=== PATIENT | female | born 1995 | race Caucasian/White ===

== ENCOUNTER 2017-05-17 08:25 | Emergency (ER) | payer OTHER ==
[2017-05-17 08:30] VITALS: RESP 16
[2017-05-17 08:54] LABS: PLATELET COUNT 254 10^3/uL (150-400)
--- NOTE | 2017-05-17 09:12 | EDPHY ---
H & P Stated Complaint: Woke up with severe lower abdo pain, more to the left. Time Seen by Provider: 05/17/17 08:47 HPI/ROS: CHIEF COMPLAINT: Abdominal pain HISTORY OF PRESENT ILLNESS: The patient is a 22 y/o female arriving with her mother complaining of left lower abdominal pain. Last night she developed sudden onset LLQ pain that she initially attributed to possible menstrual cramping. This morning the pain was much worse and spread across her abdomen, though still worst in the LLQ. She describes waxing and waning pain with moments of sharpness. She had associated nausea this morning. She had a similar episode of lower abdominal pain located in the right lower quadrant 1 month ago. She went to urgent care for that evaluation and had a normal STD panel at that time with no diagnosis for her pain. Pain completely resolved resolve over the next 1-2 weeks. She notes she has normally painful menstrual periods, but they are usually regular; her period last month was 2 weeks late. No vaginal discharge, urinary symptoms, vomiting, fever. REVIEW OF SYSTEMS: Constitutional: No fever, no chills Eyes: No visual changes ENT: No sore throat Respiratory: No cough, no shortness of breath Cardiac: No chest pain Gastrointestinal: see HPI Genitourinary: no dysuria Musculoskeletal: No leg pain or swelling Skin: No rash Neurological: No headache, no weakness Psychiatric: No depression - Personal History LMP (Females 10-55): Over 28 Days Ago Current Tetanus Diphtheria and Acellular Pertussis (TDAP): Yes - Medical/Surgical History PMH: Denies Hx Asthma: No Hx Chronic Respiratory Disease: No Hx Diabetes: No Hx Cardiac Disease: No Hx Renal Disease: No Hx Cirrhosis: No Hx Alcoholism: No Hx HIV/AIDS: No Hx Splenectomy or Spleen Trauma: No Other PMH: Denies. - Social History Smoking Status: Never smoked Additional Social History: Nonsmoker. Lives in [place]. Mother at bedside. Employed. - Physical Exam Exam: General Appearance: Alert, no distress Eyes: Pupils equal and round, no conjunctival pallor or injection ENT, Mouth: Mucous membranes moist Neck: Normal inspection Respiratory: Lungs are clear to auscultation Cardiovascular: Regular rate and rhythm Gastrointestinal: Abdomen is soft, left pelvic tenderness Neurological: A&O, nonfocal, normal gait Skin: Warm and dry, no rash Extremities: Nontender, no pedal edema Psychiatric: Mood and affect normal Constitutional: Initial Vital Signs Temperature (C) 36.7 C 05/17/17 08:25 Heart Rate 78 05/17/17 08:25 Respiratory Rate 16 05/17/17 08:25 Blood Pressure 97/56 L 05/17/17 08:25 O2 Sat (%) 97 05/17/17 08:25 O2 Delivery Mode Room Air Allergies/Adverse Reactions: acetaminophen [From Tylenol] Allergy (Verified 05/17/17 08:30) Home Medications: Medication Instructions Recorded NK [No Known Home Meds] 05/17/17 Medical Decision Making - Diagnostics Imaging Results: Imaging Impressions Pelvic/Renal Ultrasound 05/17/17 08:46 Impression: 1. Complex left ovarian cystic lesion measuring 5 x 4.1 x 3.1 cm with multiple septations and internal echoes. Differential diagnosis of complex cystic neoplasm, multiple hemorrhagic cysts, multiple endometriomas. 2. No ovarian torsion. 3. Minimal free fluid. 4. Normal right ovary. Recommend gynecologic consult. Findings and recommendations discussed with Emergency Department physician, Dr. Zohreh Priest at 0958 hours on May 17, 2017. Final report concurs with initial preliminary interpretation. Imaging: Discussed imaging studies w/ yardage caller Radiologist ED Course/Re-evaluation: This is a healthy nontoxic-appearing 22 y/o female who presents with about 12 hours of LLQ abdominal pain that worsened this morning. She had similar pain on the right side one month ago and had a negative work up at urgent care. She has left pelvic tenderness on exam. She is afebrile. Plan for IV, labs, UA, and pelvic US to assess for ovarian etiology. US shows a complex left ovarian cyst that will require OBGYN follow up. Labs are completely normal. Reassessed patient and discussed results. She understands she needs to follow up with her OBGYN this week. NSAIDs, heating pad for pain. Return precautions discussed. She is comfortable with discharge plan. Differential Diagnosis: Differential diagnosis includes though it is not limited to ectopic , ovarian cyst, ovarian torsion, PID, UTI, appendicitis. - Data Points Laboratory Results: Laboratory Results 05/17/17 08:44 05/17/17 05/17/17 05/17/17 08:44 08:44 08:44 WBC 6.69 10^3/uL 10^3/uL (3.80-9.50) RBC 4.22 10^6/uL 10^6/uL (4.18-5.33) Hgb 13.6 g/dL g/dL (12.6-16.3) Hct 39.4 % % (38.0-47.0) MCV 93.4 fL fL (81.5-99.8) MCH 32.2 pg pg (27.9-34.1) MCHC 34.5 g/dL g/dL (32.4-36.7) RDW 11.8 % % (11.5-15.2) Plt Count 254 10^3/uL 10^3/uL (150-400) MPV 9.8 fL fL (8.7-11.7) Neut % (Auto) 63.4 % % (39.3-74.2) Lymph % (Auto) 24.5 % % (15.0-45.0) [place] % (Auto) 9.6 % % (4.5-13.0) Eos % (Auto) 1.6 % % (0.6-7.6) Baso % (Auto) 0.6 % % (0.3-1.7) Nucleat RBC Rel Count 0.0 % % (0.0-0.2) Absolute Neuts (auto) 4.24 10^3/uL 10^3/uL (1.70-6.50) Absolute Lymphs (auto) 1.64 10^3/uL 10^3/uL (1.00-3.00) Absolute Monos (auto) 0.64 10^3/uL 10^3/uL (0.30-0.80) Absolute Eos (auto) 0.11 10^3/uL 10^3/uL (0.03-0.40) Absolute Basos (auto) 0.04 10^3/uL 10^3/uL (0.02-0.10) Absolute Nucleated RBC 0.00 10^3/uL 10^3/uL (0-0.01) Immature Gran % 0.3 % % (0.0-1.1) Immature Gran # 0.02 10^3/uL 10^3/uL (0.00-0.10) Beta HCG, Qual NEGATIVE Urine Color YELLOW Urine Appearance HAZY Urine pH 5.0 (5.0-7.5) Ur Specific [place] 1.018 (1.002-1.030) Urine Protein NEGATIVE (NEGATIVE) Urine Ketones NEGATIVE (NEGATIVE) Urine Blood NEGATIVE (NEGATIVE) Urine Nitrate NEGATIVE (NEGATIVE) Urine Bilirubin NEGATIVE (NEGATIVE) Urine Urobilinogen NEGATIVE EU EU (0.2-1.0) Ur Leukocyte Esterase NEGATIVE (NEGATIVE) Urine Glucose NEGATIVE (NEGATIVE) Medications Given: Discontinued Medications Ibuprofen (Motrin) 600 mg PO EDNOW ONE Stop: 05/17/17 10:06 Last Admin: 05/17/17 10:08 Dose: 600 mg Departure - Departure Disposition: Home, Routine, Self-Care Clinical Impression: Complex cyst of left ovary Condition: Good Instructions: Ovarian Cyst (ED) Additional Instructions: 1. Take 600mg ibuprofen every 6-8 hours as needed for pain over the next few days. A heating pad over your abdomen may be helpful as well. 2. Follow up with your OBGYN this week. You've been referred to our on-call provider if needed. 3. Return to the ED for severe pain, uncontrollable vomiting, severe vaginal bleeding, fever, or other worsening of condition. Referrals: Cedric Colmenares MD [Primary Care Provider] - As per Instructions Dejon Chaudhary MD [Medical Doctor] - As per Instructions Report Scribed for: Zohreh Priest Report Scribed by: Erinn Pan Date of Report: 05/17/17 Time of Report: 09:13 Physician Review and Approval Statement: 05/17/17 09:13 Portions of this note were transcribed by a medical receptionist. I personally performed a history, physical exam, medical decision making, and confirmed accuracy of information the transcribed note.
[2017-05-17] MEDS ORDERED: KETOROLAC 15 MG/1 ML SDV IVP ONE (09:59)
[2017-05-17] MEDS ORDERED: IBUPROFEN 600 MG TAB PO ONE (10:05)
[2017-05-17 10:10] VITALS: BP 105/66; PULSE 62; TEMP 98.4; O2SAT 98
== END 2017-05-17 10:10 | disposition home or self-care (01) ==
DX: N83.202 Unspecified ovarian cyst, left side (principal)

== ENCOUNTER 2017-06-30 13:18 | Emergency (ER) | payer OTHER ==
--- NOTE | 2017-06-30 13:20 | EDPHY ---
H & P Time Seen by Provider: 06/30/17 13:19 HPI/ROS: HPI: This is a 22-year-old female who presents with Chief Complaint: Suprapubic pain Location: Suprapubic Quality: Pain Duration: Approximately 3-5 hours prior to arrival Signs and Symptoms: no fever, no nausea, no vomiting, no hematemesis, no blood in stool, no abdominal bloating, no diarrhea, no back pain, no urinary symptoms , no vaginal bleeding/discharge, no indigestion, no chest pain, no shortness of breath Timing: Acute Severity: Moderate Context: Patient has a history of ovarian cyst seen last month in the ER for same presents to the emergency room with waking up this afternoon approximately 3-5 hr ago with suprapubic, moderate, constant pain that is nonradiating in nature. She feels like it is typical pain like she had with her ovarian cysts last ER visit. Her menses also started this morning at the same time the pain started. Patient reports that she did follow up with [facility] directly after her ER visit and had a ultrasound that showed decreased ovarian cyst size. Patient reports that she drank alcohol last night and has not ate or drank any fluids today. Grandmother at bedside. Has not tried any over-the- counter medications for the discomfort. Denies any fever/nausea/vomiting/ dysuria/flank pain/back pain. Modifying Factors: None Comment: ROS: see HPI Constitutional: No fever, no chills, no weight loss Eyes: No blurred vision Respiratory: No shortness of breath, no cough Cardiovascular: No chest pain, no palpitations Gastrointestinal: No nausea, no vomiting, no diarrhea, no hematemesis, no blood in stool Genitourinary: No dysuria, no blood in urine Extremities: No myalgias, no edema Neurologic: No weakness, no numbness Skin: No rashes, no petechiae Hematologic: No bruising, no bleeding MEDICAL/SURGICAL/SOCIAL HISTORY: Medical history: Generally healthy. Does not take any regular medications. Surgical history: Denies Social history: Student. CONSTITUTIONAL: Well-appearing young adult white female, awake and alert, no obvious distress HEENT: Atraumatic and normocephalic, PERRL, EOMI. Tympanic membranes clear. Oropharynx clear, no exudate and moist pink mucosa. Airway patent. No lymphadenopathy. No meningismus. Cardiovascular: Normal S1/S2, regular rate, regular rhythm, without murmur rub or gallop. PULMONARY/CHEST: Symmetrical and nontender. Clear to auscultation bilaterally. Good air movement. No accessory muscle usage. ABDOMEN: Soft, nondistended, mild suprapubic tenderness, no rebound, no guarding, no peritoneal signs, no masses or organomegaly. No CVAT. EXTREMITIES: 2/2 pulses, strength 5/5, no deformities, no clubbing, no cyanosis or edema. NEUROLOGICAL: no focal neuro deficits. GCS 15. SKIN: Warm and dry, no erythema. no rash. Good capillary refill. Source: Patient Exam Limitations: No limitations - Medical/Surgical History Hx Asthma: No Hx Chronic Respiratory Disease: No Hx Diabetes: No Hx Cardiac Disease: No Hx Renal Disease: No Hx Cirrhosis: No Hx Alcoholism: No Hx HIV/AIDS: No Hx Splenectomy or Spleen Trauma: No Other PMH: Denies. - Social History Smoking Status: Never smoked Constitutional: Initial Vital Signs Temperature (C) 37.1 C 06/30/17 13:21 Heart Rate 82 06/30/17 13:21 Respiratory Rate 18 06/30/17 13:21 Blood Pressure 110/67 06/30/17 13:21 O2 Sat (%) 99 06/30/17 13:21 O2 Delivery Mode Room Air Allergies/Adverse Reactions: acetaminophen [From Tylenol] Allergy (Verified 05/17/17 08:30) Home Medications: Medication Instructions Recorded Cyclobenzaprine [Flexeril 10 MG 10 mg PO TID PRN #12 tab 06/30/17 (*)] Medical Decision Making - Diagnostics Imaging Results: Imaging Impressions Pelvic/Renal Ultrasound 06/30/17 13:27 Impression: 1. Resolved left complex ovarian cysts. 2. There are many small follicles in each ovary, raising the possibility of polycystic ovarian disease. Results discussed with Jeannie Smallwood at 2:48pm. ED Course/Re-evaluation: Labs, urinalysis, IV fluids, IV medications, pelvic ultrasound ordered Given 1 L normal saline, IV Toradol, p.o. Flexeril 1445: Called by radiologist who advised that the left ovarian cyst seen last month has completely resolved. There are multiple follicles throughout the ovaries which questions PCOS. No signs of ovarian torsion/rupture Labs reviewed and showed elevated sodium and chloride consistent with excessive alcohol use last night. Urinalysis does not show any clear signs of hematuria/infection. 1455: Reassessed patient; reports improvement in pain. Advise NSAIDs and muscle relaxers with OBGYN follow-up. This patient was seen under the supervision of my secondary supervising physician. I evaluated care for this patient independently. Discussed this patient with Dr. Prakash who did not see the patient. Differential Diagnosis: Abdominal pain in a female including but not limited to ovarian cyst, pelvic inflammatory disease, ovarian torsion, urinary tract infection, and appendicitis. - Data Points Laboratory Results: Laboratory Results 06/30/17 13:20 06/30/17 13:20 06/30/17 06/30/17 06/30/17 13:45 13:20 13:20 WBC RBC Hgb Hct MCV MCH MCHC RDW Plt Count MPV Neut % (Auto) Lymph % (Auto) [place] % (Auto) Eos % (Auto) Baso % (Auto) Nucleat RBC Rel Count Absolute Neuts (auto) Absolute Lymphs (auto) Absolute Monos (auto) Absolute Eos (auto) Absolute Basos (auto) Absolute Nucleated RBC Immature Gran % Immature Gran # Sodium 147 mEq/L H mEq/L (135-145) Potassium 4.0 mEq/L mEq/L (3.5-5.2) Chloride 108 mEq/L mEq/L (97-110) Carbon Dioxide 21 mEq/l L mEq/l (22-31) Anion Gap 18 mEq/L H mEq/L (8-16) BUN 9 mg/dL mg/dL (7-23) Creatinine 0.7 mg/dL mg/dL (0.6-1.0) Estimated GFR > 60 Glucose 91 mg/dL mg/dL (70-100) Calcium 9.6 mg/dL mg/dL (8.5-10.4) Total Bilirubin 0.6 mg/dL mg/dL (0.1-1.4) Conjugated Bilirubin 0.3 mg/dL mg/dL (0.0-0.5) Unconjugated Bilirubin 0.3 mg/dL mg/dL (0.0-1.1) AST 25 IU/L IU/L (14-46) ALT 34 IU/L IU/L (9-52) Alkaline Phosphatase 45 IU/L IU/L (38-126) Total Protein 7.5 g/dL g/dL (6.3-8.2) Albumin 4.7 g/dL g/dL (3.5-5.0) Beta HCG, Qual NEGATIVE Urine Color YELLOW Urine Appearance HAZY Urine pH 5.0 (5.0-7.5) Ur Specific [place] 1.010 (1.002-1.030) Urine Protein NEGATIVE (NEGATIVE) Urine Ketones NEGATIVE (NEGATIVE) Urine Blood 1+ H (NEGATIVE) Urine Nitrate NEGATIVE (NEGATIVE) Urine Bilirubin NEGATIVE (NEGATIVE) Urine Urobilinogen NEGATIVE EU EU (0.2-1.0) Ur Leukocyte Esterase NEGATIVE (NEGATIVE) Urine RBC NONE SEEN /hpf /hpf (0-3) Urine WBC 3-5 /hpf H /hpf (0-3) Ur Epithelial Cells TRACE /lpf /lpf (NONE-1+) Urine Bacteria TRACE /hpf H /hpf (NONE SEEN) Urine Mucus TRACE /lpf /lpf (NONE-1+) Urine Glucose NEGATIVE (NEGATIVE) 06/30/17 13:20 WBC 8.26 10^3/uL 10^3/uL (3.80-9.50) RBC 4.38 10^6/uL 10^6/uL (4.18-5.33) Hgb 13.9 g/dL g/dL (12.6-16.3) Hct 40.0 % % (38.0-47.0) MCV 91.3 fL fL (81.5-99.8) MCH 31.7 pg pg (27.9-34.1) MCHC 34.8 g/dL g/dL (32.4-36.7) RDW 12.2 % % (11.5-15.2) Plt Count 361 10^3/uL 10^3/uL (150-400) MPV 10.1 fL fL (8.7-11.7) Neut % (Auto) 43.0 % % (39.3-74.2) Lymph % (Auto) 47.1 % H % (15.0-45.0) [place] % (Auto) 8.0 % % (4.5-13.0) Eos % (Auto) 1.2 % % (0.6-7.6) Baso % (Auto) 0.5 % % (0.3-1.7) Nucleat RBC Rel Count 0.0 % % (0.0-0.2) Absolute Neuts (auto) 3.55 10^3/uL 10^3/uL (1.70-6.50) Absolute Lymphs (auto) 3.89 10^3/uL H 10^3/uL (1.00-3.00) Absolute Monos (auto) 0.66 10^3/uL 10^3/uL (0.30-0.80) Absolute Eos (auto) 0.10 10^3/uL 10^3/uL (0.03-0.40) Absolute Basos (auto) 0.04 10^3/uL 10^3/uL (0.02-0.10) Absolute Nucleated RBC 0.00 10^3/uL 10^3/uL (0-0.01) Immature Gran % 0.2 % % (0.0-1.1) Immature Gran # 0.02 10^3/uL 10^3/uL (0.00-0.10) Sodium Potassium Chloride Carbon Dioxide Anion Gap BUN Creatinine Estimated GFR Glucose Calcium Total Bilirubin Conjugated Bilirubin Unconjugated Bilirubin AST ALT Alkaline Phosphatase Total Protein Albumin Beta HCG, Qual Urine Color Urine Appearance Urine pH Ur Specific [place] Urine Protein Urine Ketones Urine Blood Urine Nitrate Urine Bilirubin Urine Urobilinogen Ur Leukocyte Esterase Urine RBC Urine WBC Ur Epithelial Cells Urine Bacteria Urine Mucus Urine Glucose Medications Given: Discontinued Medications Cyclobenzaprine HCl (Flexeril) 10 mg PO EDNOW ONE Stop: 06/30/17 13:28 Last Admin: 06/30/17 13:33 Dose: 10 mg Sodium Chloride (Ns) 1,000 mls @ 0 mls/hr IV ONCE ONE; Wide Open PRN Reason: Protocol Stop: 06/30/17 13:27 Last Admin: 06/30/17 13:33 Dose: 1,000 mls Ketorolac Tromethamine (Toradol) 30 mg IVP EDNOW ONE Stop: 06/30/17 13:27 Last Admin: 06/30/17 13:33 Dose: 30 mg Ondansetron HCl (Zofran) 4 mg IVP EDNOW ONE Stop: 06/30/17 13:27 Last Admin: 06/30/17 13:33 Dose: 4 mg Departure - Departure Disposition: Home, Routine, Self-Care Clinical Impression: Follicular cystic ovary disease, Dysmenorrhea Condition: Good Instructions: Dysmenorrhea (ED), Polycystic Ovarian Syndrome (ED) Additional Instructions: Ultrasound today shows resolved left ovarian cyst. There are tiny is multiple follicles seen in her ovaries which questions polycystic ovary syndrome. Please follow-up with your OBGYN to discuss further interventions. Consume a minimum of 8-10 glasses of water or electrolyte fluid replacement drinks that include Gatorade, Powerade, Pedialyte. Eat a bland diet for the next 48 hours and then slowly advance as tolerated. Take Tylenol 650 mg every 4 hours and/or Ibuprofen 600 mg every 8 hours with food as needed for pain. Take Flexeril every 8 hr as needed for muscle cramps. Rest as much as possible and apply heating pad to your lower suprapubic area to ease discomfort. Return to the ER immediately if you experience new, continued or worsening abdominal pain, fevers/chills, inability to tolerate oral intake, new pain, or any other symptoms that concern you. Referrals: [facility] [Provider Group] - As per Instructions Stand Alone Forms: Work Excuse Prescriptions: Cyclobenzaprine [Flexeril 10 MG (*)] 10 mg PO TID PRN #12 tab PRN Reason: Spasms
[2017-06-30 13:26] VITALS: RESP 18
[2017-06-30] MEDS ORDERED: KETOROLAC 30 MG/1 ML SDV IVP ONE (13:26)
[2017-06-30] MEDS ORDERED: ONDANSETRON 4 MG/2 ML VIAL IVP ONE (13:26)
[2017-06-30] MEDS ORDERED: NS 1,000 ML IV ONE (13:26)
[2017-06-30] MEDS ORDERED: CYCLOBENZAPRINE 10 MG TAB PO ONE (13:27)
[2017-06-30 13:40] LABS: PLATELET COUNT 361 10^3/uL (150-400)
[2017-06-30 14:07] VITALS: PULSE 87
[2017-06-30 15:07] VITALS: BP 101/48; TEMP 98.6; O2SAT 97
== END 2017-06-30 15:14 | disposition home or self-care (01) ==
LOC: EDUNIT#
DX: N83.02 Follicular cyst of left ovary (principal); N94.6 Dysmenorrhea, unspecified; E86.9 Volume depletion, unspecified; N83.01 Follicular cyst of right ovary
CPT/HCPCS: 96374; J1885; J2405